=== PATIENT | female | born 1980 | race Caucasian/White ===

== ENCOUNTER 2018-12-31 06:48 | Inpatient (IN) | payer MEDICAID ==
[2018-12-31] MEDS ORDERED: Misoprostol 50 MCG (1/2 of 100 MCG) Tab VAG ONE (07:25)
[2018-12-31] MEDS: Misoprostol 50 MCG (1/2 of 100 MCG) Tab ONE (07:32)
[2018-12-31] MEDS ORDERED: Sodium Chloride 0.9% 10 ML Syringe FLUSH PRN (07:46)
[2018-12-31] MEDS ORDERED: Acetaminophen 325 MG Tab PO PRN (07:46)
[2018-12-31] MEDS ORDERED: Ondansetron 4 MG/2 ML SDV IV PRN (07:46)
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
[2018-12-31] MEDS ORDERED: Lidocaine 1% 50 ML MDV INJECT ONE (14:58)
[2018-12-31] MEDS ORDERED: Docusate Sodium 100 MG Cap PO PRN (16:20)
[2018-12-31] MEDS ORDERED: Witch Hazel Medicated Pads 100/Jar TOP PRN (16:20)
[2018-12-31] MEDS ORDERED: Lanolin 100% Cream 40 GM Tube TOP PRN (16:20)
[2018-12-31] MEDS ORDERED: Benzocaine 20% Top Spray 56 GM Bottle TOP PRN (16:20)
--- NOTE | 2018-12-31 16:20 | PCM.PNLD ---
Labor Progress Note - VS & Meds Vital Signs: Last Vital Signs Temp 35.8 C 12/31/18 11:05 Pulse 83 12/31/18 11:05 Resp 20 12/31/18 11:05 BP 133/63 12/31/18 11:05 Pulse Ox 95 12/31/18 11:05 Active Medications: Current Medications Acetaminophen (Tylenol) 650 mg PO Q4H PRN PRN Reason: Pain (Mild 1-3) and fever Oxytocin/Sodium Chloride (Pitocin In Ns 20 Units/1,000 Ml) 20 unit in 1,000 mls @ 999 mls/hr IV ASDIRECTED STANLEY; Protocol Ondansetron HCl (Zofran) 4 mg IV Q4H PRN PRN Reason: Nausea/Vomiting Sodium Chloride (Saline Flush) 10 ml FLUSH ASDIRECTED PRN PRN Reason: Keep Vein Open Discontinued Medications Lidocaine HCl (Xylocaine 1%) Confirm Administered Dose 100 ml .ROUTE .STK-MED ONE Stop: 12/31/18 14:59 Misoprostol (Cytotec) Confirm Administered Dose 50 mcg .ROUTE .STK-MED ONE Stop: 12/31/18 07:26 Last Admin: 12/31/18 07:32 Dose: 50 mcg - Uterine Contractions Uterine Monitoring Mode: External [place] Contraction Frequency (min): 1.5-2.5 Contraction Duration (sec): 50-80 Contraction Intensity: Moderate Uterine Resting Tone: Soft - Monitoring Heart Rate (FHR) Variability: Moderate (6-25 bmp) - Vaginal Exam Dilation (cm): 3-4 Effacement (Percent): 70 Station: -3 Sterile Vaginal Exam Performed By: Kat Landaverde - Labor Progress (Free Text) Labor Progress: 12/31/2018 Patient is progressing nicely SVE-3-4/70/-3 FHTs category one Patient breathing through contractions and tolerating them with position change Plan- Continue to monitor labor Continue to monitor FHTs Nitrous for pain control when patient desires Patient may get in tub Plan and anticipate a vaginal delivery
[2018-12-31] MEDS ORDERED: Acetaminophen 325 MG Tab, 50 Tab Bulk Bottle PO PRN (16:41)
[2018-12-31] MEDS ORDERED: Ibuprofen 200 MG Tab, 24 Tab Bulk Bottle PO PRN (16:41)
--- NOTE | 2018-12-31 16:57 | PCM.DEL ---
L & D Note - General Info Date of Service: 12/31/18 Mother's Due Date: 01[birth year]08[birth year]19 - Delivery Note Cervical Ripening Method: Misoprostil Delivery Outcome: Livebirth Delivery Method: Spontaneous Vaginal Delivery-Single Delivery Mode: Spontaneous Presentation: Vertex Nuchal Cord: Present (tight and cut, clamped on perineum) Anesthesia Type: None Laceration: 1st Degree Suture type: Vicryl Suture size: 3-0 Placenta: Intact, Spontaneous Cord: 3 Vessels Estimated Blood Loss: 300 Resuscitation Needed: No [place]: Bulb Syringe, Stimulated, Warmed Provider: Kat Landaverde Score 1 min: 5 Score 5 min: 8 Score 10 min: 9 Delivery Comments (Free Text/Narrative):: 12/31/2018 38 yo delivered precipitously a female by RN at 39 0/7 weeks gestation over an intact perineum at 1447 on 12/31/2018. Unsure of infant position at delivery but was vertex, RN had a tight nuchal that was clamped and cut by RN whom was delivering, due to inability to reduce it on perineum. was then placed on mother's abdomen. Infant was dried and stimulated but was not pinking in color and had no cry, at this time provider entered the room and brought infant to the warmer for initial assessment and evaluation. In process of drying and stimulating again began to cry, deep suctioned was done times too with only 1.5ml of clear fluid, was also dried, warmed , stimulated, and slight percussion with blow by as slowly transitioned. APGARS-5/8/9, weight 9lbs 3oz, length-21.1inches, has large amount of bruising and petechia on face, head and neck from delivery process being rapid. Mother then had a first degree perineal that needed repaired. Nitrous and lidocaine were used for relief while repaired in usual fashion. Placenta spontaneous, three vessel cord, EBL-300ml. No other lacerations noted of vagina , labia, rectum, or cervix. Patient does have swollen area by a large varicose vein on her right of her labia. Mother now stable, skin to skin with mother and stable, both in labor and delivery room. Stages- [id number] - General Info Date of Service: 12/31/18 - Review of Systems General: Reports: No Symptoms HEENT: Reports: No Symptoms Pulmonary: Reports: No Symptoms Cardiovascular: Reports: No Symptoms Gastrointestinal: Reports: No Symptoms Genitourinary: Reports: No Symptoms Musculoskeletal: Reports: No Symptoms Skin: Reports: No Symptoms Neurological: Reports: No Symptoms Psychiatric: Reports: No Symptoms - Patient Data Vitals - Most Recent: Last Vital Signs Temp 35.8 C 12/31/18 11:05 Pulse 83 12/31/18 11:05 Resp 20 12/31/18 11:05 BP 133/63 12/31/18 11:05 Pulse Ox 95 12/31/18 11:05 Weight - Most Recent: 117.934 kg I&O - Last 24 Hours: Intake & Output 12/31/18 12/31/18 12/31/18 06:59 14:59 22:59 Intake Total 1500 Balance 1500 Lab Results Last 24 Hours: Laboratory Results - last 24 hr 12/31/18 12/31/18 12/31/18 Range/Units 07:51 07:51 08:00 WBC 7.9 (4.5-11.0) K/uL RBC 3.55 (3.30-5.50) M/uL Hgb 9.4 L (12.0-15.0) g/dL Hct 30.6 L (36.0-48.0) % MCV 86 (80-98) fL MCH 27 (27-31) pg MCHC 31 L (32-36) % Plt Count 236 (150-400) K/uL Neut % (Auto) 74 H (36-66) % Lymph % (Auto) 17 L (24-44) % [place] % (Auto) 8 H (2-6) % Eos % (Auto) 1 L (2-4) % Baso % (Auto) 0 (0-1) % Urine Color Yellow Urine Appearance Cloudy Urine pH 5.0 (4.5-8.0) Ur Specific [place] 1.020 (1.008-1.030) Urine Protein Negative (NEGATIVE) mg/dL Urine Glucose (UA) Normal (NEGATIVE) mg/dL Urine Ketones Negative (NEGATIVE) mg/dL Urine Occult Blood Negative (NEGATIVE) Urine Nitrite Negative (NEGATIVE) Urine Bilirubin Negative (NEGATIVE) Urine Urobilinogen Normal (NORMAL) mg/dL Ur Leukocyte Esterase Trace (NEGATIVE) Urine RBC 0-5 (0-5) Urine WBC 0-5 (0-5) Ur Epithelial Cells Moderate Amorphous Sediment Not seen Urine Bacteria Many Urine Mucus Not seen Urine Opiates Screen Negative (NEGATIVE) Ur Oxycodone Screen Negative (NEGATIVE) Urine Methadone Screen Negative (NEGATIVE) Ur Propoxyphene Screen Negative (NEGATIVE) Ur Barbiturates Screen Negative (NEGATIVE) Ur Tricyclics Screen Negative (NEGATIVE) Ur Phencyclidine Scrn Negative (NEGATIVE) Ur Amphetamine Screen Negative (NEGATIVE) U Methamphetamines Scrn Negative (NEGATIVE) Urine MDMA Screen Negative (NEGATIVE) U Benzodiazepines Scrn Negative (NEGATIVE) U Cocaine Metab Screen Negative (NEGATIVE) U Marijuana (THC) Screen Negative (NEGATIVE) Blood Type Gel Antibody Screen Antibody Identification 12/31/18 Range/Units 08:00 WBC (4.5-11.0) K/uL RBC (3.30-5.50) M/uL Hgb (12.0-15.0) g/dL Hct (36.0-48.0) % MCV (80-98) fL MCH (27-31) pg MCHC (32-36) % Plt Count (150-400) K/uL Neut % (Auto) (36-66) % Lymph % (Auto) (24-44) % [place] % (Auto) (2-6) % Eos % (Auto) (2-4) % Baso % (Auto) (0-1) % Urine Color Urine Appearance Urine pH (4.5-8.0) Ur Specific [place] (1.008-1.030) Urine Protein (NEGATIVE) mg/dL Urine Glucose (UA) (NEGATIVE) mg/dL Urine Ketones (NEGATIVE) mg/dL Urine Occult Blood (NEGATIVE) Urine Nitrite (NEGATIVE) Urine Bilirubin (NEGATIVE) Urine Urobilinogen (NORMAL) mg/dL Ur Leukocyte Esterase (NEGATIVE) Urine RBC (0-5) Urine WBC (0-5) Ur Epithelial Cells Amorphous Sediment Urine Bacteria Urine Mucus Urine Opiates Screen (NEGATIVE) Ur Oxycodone Screen (NEGATIVE) Urine Methadone Screen (NEGATIVE) Ur Propoxyphene Screen (NEGATIVE) Ur Barbiturates Screen (NEGATIVE) Ur Tricyclics Screen (NEGATIVE) Ur Phencyclidine Scrn (NEGATIVE) Ur Amphetamine Screen (NEGATIVE) U Methamphetamines Scrn (NEGATIVE) Urine MDMA Screen (NEGATIVE) U Benzodiazepines Scrn (NEGATIVE) U Cocaine Metab Screen (NEGATIVE) U Marijuana (THC) Screen (NEGATIVE) Blood Type O NEGATIVE Gel Antibody Screen Positive A* Antibody Identification Cancelled Med Orders - Current: Current Medications Acetaminophen (Tylenol) 650 mg PO Q4H PRN PRN Reason: Pain (Mild 1-3) and fever Acetaminophen (Tylenol Bulk Bottle) 325 mg PO Q4H PRN PRN Reason: Pain Benzocaine (Tfnn-W-Mgoradm 20% [place]) 0 gm TOP Q4H PRN PRN Reason: Perineal Comfort Measure Docusate Sodium (Colace) 100 mg PO BID PRN PRN Reason: Constipation Emollient Ointment (Lansinoh Hpa) 1 gm TOP ASDIRECTED PRN PRN Reason: Sore Nipples Oxytocin/Sodium Chloride (Pitocin In Ns 20 Units/1,000 Ml) 20 unit in 1,000 mls @ 999 mls/hr IV ASDIRECTED [place]LEY; Protocol Ibuprofen (Motrin Bulk Bottle) 600 mg PO Q6H PRN PRN Reason: Pain Ondansetron HCl (Zofran) 4 mg IV Q4H PRN PRN Reason: Nausea/Vomiting Sodium Chloride (Saline Flush) 10 ml FLUSH ASDIRECTED PRN PRN Reason: Keep Vein Open [place] (Tucks) 1 pad TOP ASDIRECTED PRN PRN Reason: Hemorrhoids Discontinued Medications Lidocaine HCl (Xylocaine 1%) Confirm Administered Dose 100 ml .ROUTE .STK-MED ONE Stop: 12/31/18 14:59 Misoprostol (Cytotec) Confirm Administered Dose 50 mcg .ROUTE .STK-MED ONE Stop: 12/31/18 07:26 Last Admin: 12/31/18 07:32 Dose: 50 mcg - Exam General: Alert, Oriented HEENT: Pupils Equal, Pupils Reactive, EOMI, Mucous Membr. Moist/[place] Neck: Supple Lungs: Clear to Auscultation, Normal Respiratory Effort Cardiovascular: Regular Rate, Regular Rhythm GI/Abdominal Exam: Normal Bowel Sounds, Soft, Non-Tender, No Organomegaly, No Distention, No Abnormal Bruit, No Mass, Pelvis Stable (Female) Exam: Normal External Exam, Normal Speculum Exam, Normal Bimanual Exam, Enlarged Uterus, Vaginal Bleeding Back Exam: Normal Inspection, Full Range of Motion Extremities: Normal Inspection, Normal Range of Motion, Non-Tender, No Pedal Edema, Normal Capillary Refill Skin: Warm, Dry, Intact Wound/Incisions: Healing Well Neurological: No New Focal Deficit Psy/Mental Status: Alert, Normal Affect, Normal Mood - Problem List & Annotations (1) SNOMED Code(s): 11651875 Code(s): Z34.90 - ENCNTR FOR SUPRVSN OF NORMAL , UNSP, UNSP TRIMESTER Status: Acute Current Visit: Yes Qualifiers: Weeks of gestation: 39 weeks Qualified Code(s): Z3A.39 - 39 weeks gestation of (2) Encounter for induction of labor SNOMED Code(s): 234528531 Code(s): Z34.90 - ENCNTR FOR SUPRVSN OF NORMAL , UNSP, UNSP TRIMESTER Status: Acute Current Visit: Yes (3) Macrosomia of fetus affecting management of mother SNOMED Code(s): 80877054 Code(s): O36.60X0 - MATERNAL CARE FOR EXCESS GROWTH, UNSP TRIMESTER, UNSP Status: Acute Priority: High Current Visit: Yes Qualifiers: Fetus number: single or unspecified fetus Trimester: third trimester Qualified Code(s): O36.63X0 - Maternal care for excessive growth, third trimester, not applicable or unspecified (4) Vaginal delivery SNOMED Code(s): 695810201 Code(s): O80 - ENCOUNTER FOR FULL-TERM UNCOMPLICATED DELIVERY Status: Acute Current Visit: Yes (5) Precipitous delivery SNOMED Code(s): 135848816, 000578628 Code(s): O62.3 - PRECIPITATE LABOR Status: Acute Current Visit: Yes (6) Perineal laceration SNOMED Code(s): 301208625 Code(s): WSQ4605 - Status: Acute Current Visit: Yes - Problem List Review Problem List Initiated/Reviewed/Updated: Yes - My Orders Last 24 Hours: My Active Orders 12/31/18 07:46 Patient Status [ADT] Routine Ambulate [RC] PER UNIT ROUTINE Communication Order [RC] ASDIRECTED May Shower [RC] ASDIRECTED Notify Provider Vital Signs [RC] PRN Notify Provider [RC] PRN Up ad Jesús [RC] ASDIRECTED Vital Signs [RC] PER UNIT ROUTINE Acetaminophen [Tylenol] 650 mg PO Q4H PRN Ondansetron [Zofran] 4 mg IV Q4H PRN Sodium Chloride 0.9% [Saline Flush] 10 ml FLUSH ASDIRECTED PRN DVT/VTE Prophylaxis Reflex [OM.PC] Routine Saline Lock Insert [OM.PC] Routine Resuscitation Status Routine 12/31/18 07:50 VTE/DVT Education [RC] Click to Edit 12/31/18 14:22 Oxytocin/Normal Saline [Pitocin in NS 20 Units/1,000 ML] 20 unit in 1,000 ml IV ASDIRECTED 12/31/18 16:20 Patient Status [ADT] Routine Vital Signs [RC] PFP Benzocaine [Jzzt-V-Oytyvji 20% [place]] See Dose Instructions TOP Q4H PRN Docusate Sodium [Colace] 100 mg PO BID PRN Lanolin [Lansinoh HPA] 1 gm TOP ASDIRECTED PRN [place] [Tucks] 1 pad TOP ASDIRECTED PRN Assess Lochia [WOMSER] Per Unit Routine Assess Uterine Involution [WOMSER] Per Unit Routine 12/31/18 16:21 Ice Therapy [OM.PC] Per Unit Routine Perineal Care [OM.PC] Per Unit Routine Sitz Bath [OM.PC] Per Unit Routine 12/31/18 16:41 Acetaminophen [Tylenol Bulk Bottle] 325 mg PO Q4H PRN Ibuprofen [Motrin Bulk Bottle] 600 mg PO Q6H PRN 12/31/18 Breakfast Regular Diet [DIET] 01/01/19 08:00 CBC WITH AUTO DIFF [HEME] Routine - Assessment Assessment:: 12/31/2018 without complications Perineal laceration - Plan Plan:: 12/31/2018 38 yo here for a medical induction of labor at 39 0/7 gestational weeks due to macrosomia of fetus SVE-1-2/50/-3 ballotable Cytotec 50mcg placed vaginally FHTs category one Occasional irregular contraction Labs-O negative, Hiv neg, Hep B neg, Hep C neg, RPR nonreactive, Rubella nonimmune, GBS negative Plan- Monitor for active labor Monitor FHTs Patient may be up ad jesús Patient may eat regular diet Pain medication per patient request Plan and anticipate a vaginal delivery 12/31/2018 Routine cares Encourage and support Good perineal care and support Discharge home in 24-48 hours
[2018-12-31] MEDS: Lidocaine 1% 50 ML MDV ONE (17:07)
--- NOTE | 2019-01-01 07:56 | PCM.PNPP ---
- General Info Date of Service: 01/01/19 Functional Status: Reports: Pain Controlled - Review of Systems General: Reports: No Symptoms HEENT: Reports: No Symptoms Pulmonary: Reports: No Symptoms Cardiovascular: Reports: No Symptoms Gastrointestinal: Reports: No Symptoms Genitourinary: Reports: No Symptoms Musculoskeletal: Reports: No Symptoms Skin: Reports: No Symptoms Neurological: Reports: No Symptoms Psychiatric: Reports: No Symptoms - General Info Date of Service: 01/01/19 - Patient Data Vital Signs - Most Recent: Last Vital Signs Temp 35.6 C 01/01/19 06:45 Pulse 80 01/01/19 06:45 Resp 18 01/01/19 06:45 BP 111/74 01/01/19 06:45 Pulse Ox 99 01/01/19 06:45 Weight - Most Recent: 117.934 kg I&O - Last 24 Hours: Intake & Output 12/31/18 01/01/19 01/01/19 22:59 06:59 14:59 Intake Total 1000 Balance 1000 Lab Results - Last 24 Hours: Laboratory Results - last 24 hr 12/31/18 12/31/18 12/31/18 Range/Units 07:51 07:51 08:00 WBC 7.9 (4.5-11.0) K/uL RBC 3.55 (3.30-5.50) M/uL Hgb 9.4 L (12.0-15.0) g/dL Hct 30.6 L (36.0-48.0) % MCV 86 (80-98) fL MCH 27 (27-31) pg MCHC 31 L (32-36) % Plt Count 236 (150-400) K/uL Neut % (Auto) 74 H (36-66) % Lymph % (Auto) 17 L (24-44) % [place] % (Auto) 8 H (2-6) % Eos % (Auto) 1 L (2-4) % Baso % (Auto) 0 (0-1) % Urine Color Yellow Urine Appearance Cloudy Urine pH 5.0 (4.5-8.0) Ur Specific [place] 1.020 (1.008-1.030) Urine Protein Negative (NEGATIVE) mg/dL Urine Glucose (UA) Normal (NEGATIVE) mg/dL Urine Ketones Negative (NEGATIVE) mg/dL Urine Occult Blood Negative (NEGATIVE) Urine Nitrite Negative (NEGATIVE) Urine Bilirubin Negative (NEGATIVE) Urine Urobilinogen Normal (NORMAL) mg/dL Ur Leukocyte Esterase Trace (NEGATIVE) Urine RBC 0-5 (0-5) Urine WBC 0-5 (0-5) Ur Epithelial Cells Moderate Amorphous Sediment Not seen Urine Bacteria Many Urine Mucus Not seen Urine Opiates Screen Negative (NEGATIVE) Ur Oxycodone Screen Negative (NEGATIVE) Urine Methadone Screen Negative (NEGATIVE) Ur Propoxyphene Screen Negative (NEGATIVE) Ur Barbiturates Screen Negative (NEGATIVE) Ur Tricyclics Screen Negative (NEGATIVE) Ur Phencyclidine Scrn Negative (NEGATIVE) Ur Amphetamine Screen Negative (NEGATIVE) U Methamphetamines Scrn Negative (NEGATIVE) Urine MDMA Screen Negative (NEGATIVE) U Benzodiazepines Scrn Negative (NEGATIVE) U Cocaine Metab Screen Negative (NEGATIVE) U Marijuana (THC) Screen Negative (NEGATIVE) Blood Type Gel Antibody Screen Antibody Identification 12/31/18 01/01/19 Range/Units 08:00 07:35 WBC 9.8 (4.5-11.0) K/uL RBC 3.68 (3.30-5.50) M/uL Hgb 9.9 L (12.0-15.0) g/dL Hct 31.6 L (36.0-48.0) % MCV 86 (80-98) fL MCH 27 (27-31) pg MCHC 31 L (32-36) % Plt Count 213 (150-400) K/uL Neut % (Auto) 80 H (36-66) % Lymph % (Auto) 10 L (24-44) % [place] % (Auto) 9 H (2-6) % Eos % (Auto) 1 L (2-4) % Baso % (Auto) 0 (0-1) % Urine Color Urine Appearance Urine pH (4.5-8.0) Ur Specific [place] (1.008-1.030) Urine Protein (NEGATIVE) mg/dL Urine Glucose (UA) (NEGATIVE) mg/dL Urine Ketones (NEGATIVE) mg/dL Urine Occult Blood (NEGATIVE) Urine Nitrite (NEGATIVE) Urine Bilirubin (NEGATIVE) Urine Urobilinogen (NORMAL) mg/dL Ur Leukocyte Esterase (NEGATIVE) Urine RBC (0-5) Urine WBC (0-5) Ur Epithelial Cells Amorphous Sediment Urine Bacteria Urine Mucus Urine Opiates Screen (NEGATIVE) Ur Oxycodone Screen (NEGATIVE) Urine Methadone Screen (NEGATIVE) Ur Propoxyphene Screen (NEGATIVE) Ur Barbiturates Screen (NEGATIVE) Ur Tricyclics Screen (NEGATIVE) Ur Phencyclidine Scrn (NEGATIVE) Ur Amphetamine Screen (NEGATIVE) U Methamphetamines Scrn (NEGATIVE) Urine MDMA Screen (NEGATIVE) U Benzodiazepines Scrn (NEGATIVE) U Cocaine Metab Screen (NEGATIVE) U Marijuana (THC) Screen (NEGATIVE) Blood Type O NEGATIVE Gel Antibody Screen Positive A* Antibody Identification Cancelled Med Orders - Current: Current Medications Acetaminophen (Tylenol) 650 mg PO Q4H PRN PRN Reason: Pain (Mild 1-3) and fever Acetaminophen (Tylenol Bulk Bottle) 325 mg PO Q4H PRN PRN Reason: Pain Last Admin: 12/31/18 17:47 Dose: 1 bottle Benzocaine (Hooo-B-Ixuhioi 20% Embudo) 0 gm TOP Q4H PRN PRN Reason: Perineal Comfort Measure Last Admin: 12/31/18 17:49 Dose: 1 applic Docusate Sodium (Colace) 100 mg PO BID PRN PRN Reason: Constipation Emollient Ointment (Lansinoh Hpa) 1 gm TOP ASDIRECTED PRN PRN Reason: Sore Nipples Last Admin: 12/31/18 17:48 Dose: 1 applic Oxytocin/Sodium Chloride (Pitocin In Ns 20 Units/1,000 Ml) 20 unit in 1,000 mls @ 999 mls/hr IV ASDIRECTED STANLEY; Protocol Last Admin: 12/31/18 14:57 Dose: 999 ml/hr, 999 mls/hr Ibuprofen (Motrin Bulk Bottle) 600 mg PO Q6H PRN PRN Reason: Pain Last Admin: 12/31/18 17:45 Dose: 1 bottle Ondansetron HCl (Zofran) 4 mg IV Q4H PRN PRN Reason: Nausea/Vomiting Sodium Chloride (Saline Flush) 10 ml FLUSH ASDIRECTED PRN PRN Reason: Keep Vein Open [place] (Tucks) 1 pad TOP ASDIRECTED PRN PRN Reason: Hemorrhoids Last Admin: 12/31/18 17:49 Dose: 1 pad Discontinued Medications Lidocaine HCl (Xylocaine 1%) Confirm Administered Dose 100 ml .ROUTE .STK-MED ONE Stop: 12/31/18 14:59 Last Admin: 12/31/18 17:07 Dose: 50 ml Misoprostol (Cytotec) Confirm Administered Dose 50 mcg .ROUTE .STK-MED ONE Stop: 12/31/18 07:26 Last Admin: 12/31/18 07:32 Dose: 50 mcg - Infant Interaction Infant Disposition, : [place] in Room with Family Interaction: Holding Infant Infant Feeding: Breastfed ; Nursed Well Support Person: Significant Other - Recovery Exam Fundal Tone: Firms with Massage Fundal Level: At Umbilicus Fundal Placement: Midline Lochia Amount: Moderate Lochia Color: Rubra/Red Perineum Description: Intact, Minimal Bruising/Swelling Episiotomy/Laceration: Approximated Bladder Status: Nonpalpable Urinary Elimination: Voided - Exam General: Alert, Oriented HEENT: Pupils Equal Neck: Supple Lungs: Clear to Auscultation, Normal Respiratory Effort Cardiovascular: Regular Rate, Regular Rhythm GI/Abdominal Exam: Normal Bowel Sounds, Soft, Non-Tender, No Organomegaly, No Distention, No Abnormal Bruit, No Mass, Pelvis Stable Extremities: Normal Inspection, Normal Range of Motion, Non-Tender, No Pedal Edema, Normal Capillary Refill Skin: Warm, Dry, Intact Wound/Incisions: Healing Well Neurological: No New Focal Deficit Psy/Mental Status: Alert, Normal Affect, Normal Mood - Problem List & Annotations (1) SNOMED Code(s): 52434274 Code(s): Z34.90 - ENCNTR FOR SUPRVSN OF NORMAL , UNSP, UNSP TRIMESTER Status: Acute Current Visit: Yes Qualifiers: Weeks of gestation: 39 weeks Qualified Code(s): Z3A.39 - 39 weeks gestation of (2) Encounter for induction of labor SNOMED Code(s): 130766534 Code(s): Z34.90 - ENCNTR FOR SUPRVSN OF NORMAL , UNSP, UNSP TRIMESTER Status: Acute Current Visit: Yes (3) Macrosomia of fetus affecting management of mother SNOMED Code(s): 20432107 Code(s): O36.60X0 - MATERNAL CARE FOR EXCESS GROWTH, UNSP TRIMESTER, UNSP Status: Acute Priority: High Current Visit: Yes Qualifiers: Fetus number: single or unspecified fetus Trimester: third trimester Qualified Code(s): O36.63X0 - Maternal care for excessive growth, third trimester, not applicable or unspecified (4) Vaginal delivery SNOMED Code(s): 342021394 Code(s): O80 - ENCOUNTER FOR FULL-TERM UNCOMPLICATED DELIVERY Status: Acute Current Visit: Yes (5) Precipitous delivery SNOMED Code(s): 199740742, 141800119 Code(s): O62.3 - PRECIPITATE LABOR Status: Acute Current Visit: Yes (6) Perineal laceration SNOMED Code(s): 475405693 Code(s): YUL3083 - Status: Acute Current Visit: Yes - Problem List Review Problem List Initiated/Reviewed/Updated: Yes - My Orders Last 24 Hours: My Active Orders 12/31/18 07:46 Patient Status [ADT] Routine Ambulate [RC] PER UNIT ROUTINE May Shower [RC] ASDIRECTED Notify Provider Vital Signs [RC] PRN Notify Provider [RC] PRN Up ad Courtney [RC] ASDIRECTED Vital Signs [RC] PER UNIT ROUTINE Acetaminophen [Tylenol] 650 mg PO Q4H PRN Ondansetron [Zofran] 4 mg IV Q4H PRN Sodium Chloride 0.9% [Saline Flush] 10 ml FLUSH ASDIRECTED PRN DVT/VTE Prophylaxis Reflex [OM.PC] Routine Saline Lock Insert [OM.PC] Routine Resuscitation Status Routine 12/31/18 07:50 VTE/DVT Education [RC] Click to Edit 12/31/18 14:22 Oxytocin/Normal Saline [Pitocin in NS 20 Units/1,000 ML] 20 unit in 1,000 ml IV ASDIRECTED 12/31/18 16:20 Patient Status [ADT] Routine Benzocaine [Rsun-Y-Myfvmfe 20% Embudo] See Dose Instructions TOP Q4H PRN Docusate Sodium [Colace] 100 mg PO BID PRN Lanolin [Lansinoh HPA] 1 gm TOP ASDIRECTED PRN [place] [Tucks] 1 pad TOP ASDIRECTED PRN Assess Lochia [WOMSER] Per Unit Routine Assess Uterine Involution [WOMSER] Per Unit Routine 12/31/18 16:21 Ice Therapy [OM.PC] Per Unit Routine Perineal Care [OM.PC] Per Unit Routine Sitz Bath [OM.PC] Per Unit Routine 12/31/18 16:41 Acetaminophen [Tylenol Bulk Bottle] 325 mg PO Q4H PRN Ibuprofen [Motrin Bulk Bottle] 600 mg PO Q6H PRN 12/31/18 Breakfast Regular Diet [DIET] - Assessment Assessment:: 12/31/2018 without complications Perineal laceration 01/01/2019 Day One well Fundus firm and bleeding decreasing Perineal laceration-no signs of hematoma noted Discharge home tomorrow - Plan Plan:: 12/31/2018 38 yo here for a medical induction of labor at 39 0/7 gestational weeks due to macrosomia of fetus SVE-1-2/50/-3 ballotable Cytotec 50mcg placed vaginally FHTs category one Occasional irregular contraction Labs-O negative, Hiv neg, Hep B neg, Hep C neg, RPR nonreactive, Rubella nonimmune, GBS negative Plan- Monitor for active labor Monitor FHTs Patient may be up ad courtney Patient may eat regular diet Pain medication per patient request Plan and anticipate a vaginal delivery 12/31/2018 Routine cares Encourage and support Good perineal care and support Discharge home in 24-48 hours 01/01/2019 Continue routine cares Continue to encourage and support Good perineal care and support Discharge home tomorrow
[2019-01-01] MEDS ORDERED: Acetaminophen 325 MG Tab, 50 Tab Bulk Bottle PO PRN (09:16)
[2019-01-01] MEDS: Ferrous Sulfate 325 MG Tab PO SCH ×2 (11:52→18:41)
[2019-01-01] MEDS: Misoprostol 50 MCG (1/2 of 100 MCG) Tab ONE (18:29)
[2019-01-01] MEDS: Lidocaine 1% 50 ML MDV ONE (18:38)
--- NOTE | 2019-01-02 07:55 | PCM.PNPP ---
- General Info Date of Service: 01/02/19 Functional Status: Reports: Pain Controlled - Review of Systems General: Reports: No Symptoms HEENT: Reports: No Symptoms Pulmonary: Reports: No Symptoms Cardiovascular: Reports: No Symptoms Gastrointestinal: Reports: No Symptoms Genitourinary: Reports: No Symptoms Musculoskeletal: Reports: No Symptoms Skin: Reports: No Symptoms Neurological: Reports: No Symptoms Psychiatric: Reports: No Symptoms - General Info Date of Service: 01/02/19 - Patient Data Vital Signs - Most Recent: Last Vital Signs Temp 36.3 C 01/02/19 07:17 Pulse 80 01/02/19 07:17 Resp 16 01/02/19 07:17 BP 90/45 L 01/02/19 07:17 Pulse Ox 97 01/02/19 07:17 Weight - Most Recent: 117.934 kg I&O - Last 24 Hours: Intake & Output 01/01/19 01/02/19 01/02/19 22:59 06:59 14:59 Intake Total 1000 900 Balance 1000 900 Med Orders - Current: Current Medications Acetaminophen (Tylenol Bulk Bottle) 325 - 650 mg PO Q4H PRN PRN Reason: Pain Benzocaine (Wvut-T-Hpqaulv 20% [place]) 0 gm TOP Q4H PRN PRN Reason: Perineal Comfort Measure Last Admin: 12/31/18 17:49 Dose: 1 applic Docusate Sodium (Colace) 100 mg PO BID PRN PRN Reason: Constipation Last Admin: 01/01/19 20:10 Dose: 100 mg Emollient Ointment (Lansinoh Hpa) 1 gm TOP ASDIRECTED PRN PRN Reason: Sore Nipples Last Admin: 12/31/18 17:48 Dose: 1 applic Ferrous Sulfate (Ferrous Sulfate) 325 mg PO BIDMEALS STANLEY Last Admin: 01/01/19 18:41 Dose: 325 mg Ibuprofen (Motrin Bulk Bottle) 600 mg PO Q6H PRN PRN Reason: Pain Last Admin: 12/31/18 17:45 Dose: 1 bottle Ondansetron HCl (Zofran) 4 mg IV Q4H PRN PRN Reason: Nausea/Vomiting Sodium Chloride (Saline Flush) 10 ml FLUSH ASDIRECTED PRN PRN Reason: Keep Vein Open [place] (Tucks) 1 pad TOP ASDIRECTED PRN PRN Reason: Hemorrhoids Last Admin: 12/31/18 17:49 Dose: 1 pad Discontinued Medications Acetaminophen (Tylenol) 650 mg PO Q4H PRN PRN Reason: Pain (Mild 1-3) and fever Acetaminophen (Tylenol Bulk Bottle) 325 mg PO Q4H PRN PRN Reason: Pain Last Admin: 12/31/18 17:47 Dose: 1 bottle Oxytocin/Sodium Chloride (Pitocin In Ns 20 Units/1,000 Ml) 20 unit in 1,000 mls @ 999 mls/hr IV ASDIRECTED [facility]; Protocol Last Admin: 12/31/18 14:57 Dose: 999 ml/hr, 999 mls/hr Lidocaine HCl (Xylocaine 1%) Confirm Administered Dose 100 ml .ROUTE .STK-MED ONE Stop: 12/31/18 14:59 Last Admin: 01/01/19 18:38 Dose: Not Given Lidocaine HCl (Xylocaine 1%) 50 ml INJECT ONETIME ONE Stop: 12/31/18 14:59 Last Admin: 12/31/18 14:50 Dose: 50 ml Misoprostol (Cytotec) Confirm Administered Dose 50 mcg .ROUTE .STK-MED ONE Stop: 12/31/18 07:26 Last Admin: 01/01/19 18:29 Dose: Not Given Misoprostol (Cytotec) 50 mcg VAG ONETIME ONE Stop: 12/31/18 07:26 Last Admin: 01/01/19 07:32 Dose: 50 mcg - Infant Interaction Infant Disposition, : in Room with Family Infant Interaction: Holding Feeding: Breastfed ; Nursed Well Support Person: Significant Other - Recovery Exam Fundal Tone: Firm Fundal Level: At Umbilicus Fundal Placement: Midline Lochia Amount: Small Lochia Color: Rubra/Red Perineum Description: Intact, Minimal Bruising/Swelling Episiotomy/Laceration: Approximated Bladder Status: Nonpalpable Urinary Elimination: Voided - Exam General: Alert, Oriented, Cooperative HEENT: Pupils Equal Neck: Supple Lungs: Clear to Auscultation, Normal Respiratory Effort Cardiovascular: Regular Rate, Regular Rhythm GI/Abdominal Exam: Normal Bowel Sounds, Soft, Non-Tender, No Organomegaly, No Distention, No Abnormal Bruit, No Mass, Pelvis Stable Extremities: Normal Inspection, Normal Range of Motion, Non-Tender, No Pedal Edema, Normal Capillary Refill Skin: Warm, Dry, Intact Neurological: No New Focal Deficit Psy/Mental Status: Alert, Normal Affect, Normal Mood - Problem List & Annotations (1) SNOMED Code(s): 57544067 Code(s): Z34.90 - ENCNTR FOR SUPRVSN OF NORMAL , UNSP, UNSP TRIMESTER Status: Acute Current Visit: Yes Qualifiers: Weeks of gestation: 39 weeks Qualified Code(s): Z3A.39 - 39 weeks gestation of (2) Encounter for induction of labor SNOMED Code(s): 463190678 Code(s): Z34.90 - ENCNTR FOR SUPRVSN OF NORMAL , UNSP, UNSP TRIMESTER Status: Acute Current Visit: Yes (3) Macrosomia of fetus affecting management of mother SNOMED Code(s): 82645002 Code(s): O36.60X0 - MATERNAL CARE FOR EXCESS GROWTH, UNSP TRIMESTER, UNSP Status: Acute Priority: High Current Visit: Yes Qualifiers: Fetus number: single or unspecified fetus Trimester: third trimester Qualified Code(s): O36.63X0 - Maternal care for excessive growth, third trimester, not applicable or unspecified (4) Vaginal delivery SNOMED Code(s): 955300676 Code(s): O80 - ENCOUNTER FOR FULL-TERM UNCOMPLICATED DELIVERY Status: Acute Current Visit: Yes (5) Precipitous delivery SNOMED Code(s): 472844220, 933583953 Code(s): O62.3 - PRECIPITATE LABOR Status: Acute Current Visit: Yes (6) Perineal laceration SNOMED Code(s): 625909717 Code(s): ZAG9242 - Status: Acute Current Visit: Yes - Problem List Review Problem List Initiated/Reviewed/Updated: Yes - My Orders Last 24 Hours: My Active Orders 01/01/19 08:00 Ferrous Sulfate 325 mg PO BIDMEALS 01/01/19 09:16 Acetaminophen [Tylenol Bulk Bottle] 325 - 650 mg PO Q4H PRN - Assessment Assessment:: 12/31/2018 without complications Perineal laceration 01/01/2019 Day One well Fundus firm and bleeding decreasing Perineal laceration-no signs of hematoma noted Discharge home tomorrow 01/02/2019 Day Two well Fundus firm and bleeding decreasing Perineal laceration-no signs of hematoma noted Discharge home today - Plan Plan:: 12/31/2018 38 yo here for a medical induction of labor at 39 0/7 gestational weeks due to macrosomia of fetus SVE-1-250/-3 ballotable Cytotec 50mcg placed vaginally FHTs category one Occasional irregular contraction Labs-O negative, Hiv neg, Hep B neg, Hep C neg, RPR nonreactive, Rubella nonimmune, GBS negative Plan- Monitor for active labor Monitor FHTs Patient may be up ad jesús Patient may eat regular diet Pain medication per patient request Plan and anticipate a vaginal delivery 12/31/2018 Routine cares Encourage and support Good perineal care and support Discharge home in 24-48 hours 01/01/2019 Continue routine cares Continue to encourage and support Good perineal care and support Discharge home tomorrow 01/02/2019 Continue routine cares Continue to encourage and support Good perineal care and support Discharge home today To celeste Brand in six weeks for
[2019-01-02] MEDS: Ferrous Sulfate 325 MG Tab PO SCH (10:29)
== END 2019-01-02 12:20 | disposition home or self-care (01) | DRG 807 ==
LOC: JP.OB 06:48 → OBSVTOIN 14:47 → JP.MS 19:06
PROVIDERS: ADMIT Advanced Practice Midwife; ATTEND Advanced Practice Midwife
PROC: 10E0XZZ Delivery of Products of Conception, External Approach (ICD-10-PCS; principal; 2018-12-31)
PROC: 0HQ9XZZ Repair Perineum Skin, External Approach (ICD-10-PCS; 2018-12-31)
PROC: 3E0P7VZ Introduction of Hormone into Female Reproductive, Via Natural or Artificial Opening (ICD-10-PCS; 2018-12-31)
PROC: 3E033VJ Introduction of Other Hormone into Peripheral Vein, Percutaneous Approach (ICD-10-PCS; 2018-12-31)
DX: O36.63X0 Maternal care for excessive fetal growth, third trimester, not applicable or unspecified (principal); Z37.0 Single live birth; O69.1XX0 Labor and delivery complicated by cord around neck, with compression, not applicable or unspecified; O62.3 Precipitate labor; O70.0 First degree perineal laceration during delivery; Z3A.39 39 weeks gestation of pregnancy
CPT/HCPCS: 36415; 59409; 80305-QW; 81001; 85025; 86850; 86900; 86901; 99211; A9270-GY; J2001; J2590

== ENCOUNTER 2022-03-24 08:00 | Inpatient (IN) | payer MEDICAID | END 2022-03-25 14:45 | disposition home or self-care (01) | DRG 806 | LOC: JP.OBCHECK 08:00 → JP.ZCENSUS 13:11 | PROVIDERS: ATTEND Obstetrics & Gynecology | PROC: 10E0XZZ Delivery of Products of Conception, External Approach (ICD-10-PCS; principal; 2022-03-24) | PROC: 30233N1 Transfusion of Nonautologous Red Blood Cells into Peripheral Vein, Percutaneous Approach (ICD-10-PCS; 2022-03-24) | PROC: 3E0P7VZ Introduction of Hormone into Female Reproductive, Via Natural or Artificial Opening (ICD-10-PCS; 2022-03-24) | PROC: 3E033VJ Introduction of Other Hormone into Peripheral Vein, Percutaneous Approach (ICD-10-PCS; 2022-03-24) | DX: O70.1 Second degree perineal laceration during delivery (principal); O72.1 Other immediate postpartum hemorrhage; Z37.0 Single live birth; Z3A.39 39 weeks gestation of pregnancy; Z20.822 Contact with and (suspected) exposure to COVID-19 | CPT/HCPCS: 51701; 76818; 76818-26 ==

== ENCOUNTER 2025-04-30 07:52 | Emergency (ER) | payer MEDICAID, OTHER | END 2025-04-30 08:50 | disposition home or self-care (01) | LOC: JP.ED 07:52 | DX: H60.551 Acute reactive otitis externa, right ear (principal) | CPT/HCPCS: 99283 ==